=== PATIENT | female | born 1990 | race Hispanic/Latino ===

== ENCOUNTER → 2018-12-22 | Outpatient (CLI) | payer OTHER | END | disposition home or self-care (01) | LOC: OIH 14:36 | PROVIDERS: ATTEND Family Medicine | DX: M54.5 Low back pain (principal) | CPT/HCPCS: 72100 ==

== ENCOUNTER → 2022-03-03 | Outpatient (CLI) | payer SELFPAY | END | disposition home or self-care (01) | LOC: ICE 09:35 | PROVIDERS: ATTEND Hospitalist | DX: U07.1 COVID-19 (principal) | CPT/HCPCS: 87635; C9803 ==

== ENCOUNTER 2023-07-07 08:10 | Day surgery (SDC) | payer OTHER ==
[2023-07-07] VITALS (11 sets, daily range): BP systolic 103–124; BP diastolic 67–86; PULSE 79–107; RESP 13–15
[~2023-07-07] VITALS: Ht 170.2 cm; Wt 62.6 kg
[~2023-07-07 08:10] MED LIST: CALC500T13 PO
[2023-07-07] MEDS ORDERED: PROPOFOL 10 MG/ML 20ML VIAL IV ONE (09:40)
== END 2023-07-07 11:00 | disposition home or self-care (01) ==
LOC: ENDO 08:10 → DAH 08:10 → ENDO 11:00
PROVIDERS: ATTEND Internal Medicine Gastroenterology
DX: R10.13 Epigastric pain (principal); K29.50 Unspecified chronic gastritis without bleeding; K21.9 Gastro-esophageal reflux disease without esophagitis; R14.0 Abdominal distension (gaseous); R19.4 Change in bowel habit; K64.9 Unspecified hemorrhoids; J45.998 Other asthma; G43.009 Migraine without aura, not intractable, without status migrainosus; Z82.49 Family history of ischemic heart disease and other diseases of the circulatory system
CPT/HCPCS: 81025; 43239; J2704; A4620; A4215 ×2; A4223; A7002; A4222; A4221; A4663; A4216; J7030; A4606; J3490

== ENCOUNTER → 2023-08-09 | Outpatient (CLI) | payer OTHER | END | disposition home or self-care (01) | LOC: RAH 10:32 | PROVIDERS: ATTEND Internal Medicine Gastroenterology | DX: R10.13 Epigastric pain (principal); R14.0 Abdominal distension (gaseous); R68.81 Early satiety | CPT/HCPCS: 78264; A9541 ==